=== PATIENT | male | born 1975 | race African-American/Black ===

== ENCOUNTER 2020-07-25 11:29 | Inpatient (IN) ==
[2020-07-25 13:15] LABS: Basophils % 0.4 % (0.0-0.8); Eosinophils # 0.3 10*3/uL (0.0-0.87); Eosinophils % 2.6 % (0.00-10.9); Hematocrit 23.7 VOL% (42.0-52.0); Hemoglobin 7.9 GM/DL (14.0-18.0); Immature Granulocytes % 0.5 %; Immature Granulocytes Absolute 0.05 #; Lymphocytes # 1.9 10*3/uL (1.4-4.0); Lymphocytes % 17.4 % (21.2-54.2); Mean Corpuscular HGB Conc 33.3 GM/DL (32-36); Mean Corpuscular Volume 70.5 FL (87-102); Mean Platelet Volume 8.7 FL (9.6-12.0); Monocytes % 7.1 % (1.7-12.7); Platelet Count 590 T/CUMM (130-400); Red Blood Count 3.36 MC/CUMM (3.8-5.5); White Blood Count 10.7 T/CUMM (4-12)
[2020-07-25 13:27] LABS: INR 1.1; PT Patient Result 11.9 SECS (9.8-11.9)
[2020-07-25] MEDS ORDERED: DEXTROSE 50% 25 GM/50 ML VIAL IV PRN (13:27)
[2020-07-25] MEDS ORDERED: ONDANSETRON 4 MG/2 ML VIAL IV PRN (13:27)
[2020-07-25] MEDS ORDERED: ACETAMINOPHEN 325 MG TABLET PO PRN (13:27)
[2020-07-25] MEDS ORDERED: GLUCAGON 1 MG VIAL IM PRN (13:27)
[2020-07-25] MEDS ORDERED: SODIUM CHLORIDE 0.9% 1,000 ML IV PRN (13:58)
[2020-07-25 14:03] LABS: Folate 20.1 NG/ML (5.4-24.0)
[2020-07-25 14:49] LABS: Alanine Aminotransferase 16 U/L (16-61); Albumin 2.1 G/DL (3.4-5.0); Alkaline Phosphatase 104 U/L (45-117); Aspartate Amino Transferase 13 U/L (0-37); Bilirubin,Total < 0.39 MG/DL (0.2-1.0); Blood Urea Nitrogen 11 MG/DL (7-18); Calcium 9.7 MG/DL (8.5-10.1); Estimated Glom Filtration Rate 142 ML/MIN; Glucose 93 MG/DL (74-106); Osmolality,Calculated 268.1 MOS/KG (273-304); Total Protein 7.4 G/DL (6.4-8.3)
[2020-07-25] MEDS: SODIUM CHLORIDE 0.9% 1,000 ML IV SCH (17:40)
[2020-07-25 18:40] LABS: Hematocrit 30.7 VOL% (42.0-52.0); Hemoglobin 10.1 GM/DL (14.0-18.0)
[2020-07-25] MEDS: PANTOPRAZOLE 40 MG TABLET PO SCH (20:51)
[2020-07-26] MEDS: SODIUM CHLORIDE 0.9% 1,000 ML IV SCH ×4 (04:16→18:31)
[2020-07-26 05:42] LABS: Basophils % 0.4 % (0.0-0.8); Eosinophils # 0.2 10*3/uL (0.0-0.87); Eosinophils % 2.5 % (0.00-10.9); Hematocrit 28.1 VOL% (42.0-52.0); Hemoglobin 9.5 GM/DL (14.0-18.0); Immature Granulocytes % 1.3 %; Immature Granulocytes Absolute 0.13 #; Lymphocytes # 2.1 10*3/uL (1.4-4.0); Lymphocytes % 21.3 % (21.2-54.2); Mean Corpuscular HGB Conc 33.8 GM/DL (32-36); Mean Corpuscular Volume 72.1 FL (87-102); Monocytes % 6.6 % (1.7-12.7); Neutrophils % 67.9 % (38.7-73.9); Platelet Count 536 T/CUMM (130-400); Red Cell Distribution Width 20.2 % (9.3-17.3); White Blood Count 9.8 T/CUMM (4-12)
[2020-07-26 06:14] LABS: Albumin 2.1 G/DL (3.4-5.0); Bilirubin,Total 0.7 MG/DL (0.2-1.0); Calcium 9.6 MG/DL (8.5-10.1); Osmolality,Calculated 275.4 MOS/KG (273-304); Risk Ratio 3.16; Thyroid Stimulating Hormone 1.35 uIU/ml (0.358-3.74); Total Protein 7.2 G/DL (6.4-8.3); VLDL CHOLESTEROL 15.4 MG/DL
[2020-07-26] MEDS ORDERED: IRON SUCROSE 200 MG in SODIUM CHLORIDE 0.9% 100 ML IV ONE (09:00)
[2020-07-26] MEDS ORDERED: FERROUS SULFATE 325 MG TABLET PO SCH (09:00)
[2020-07-26] MEDS: MULTIVITAMIN (CENTRUM) TABLET PO SCH (09:55)
[2020-07-26] MEDS: PANTOPRAZOLE 40 MG TABLET PO SCH ×2 (09:55→21:40)
[2020-07-26] MEDS: DOCUSATE SODIUM 100 MG/10 ML UDCUP PO SCH ×2 (09:56→10:01)
[2020-07-26] MEDS: BACLOFEN 10 MG TABLET PO SCH ×4 (09:56→21:39)
[2020-07-26] MEDS: DULoxetine 30 MG CAPSULE PO SCH (09:56)
[2020-07-26] MEDS: HYDROXYUREA 500 MG CAPSULE PO SCH ×2 (09:57→21:39)
[2020-07-26] MEDS: SENNA 8.6 MG TABLET PO SCH (12:04)
[2020-07-26] MEDS: oxyCODONE IR 5 MG TABLET PO PRN ×2 (13:40→18:20)
[2020-07-26] MEDS: GABAPENTIN 400 MG CAPSULE PO SCH (21:39)
[2020-07-26] MEDS: BISACODYL 5 MG TABLET PO SCH (21:41)
[2020-07-27] MEDS: oxyCODONE IR 5 MG TABLET PO PRN ×5 (00:17→22:03)
[2020-07-27] MEDS: DOCUSATE SODIUM 100 MG/10 ML UDCUP PO SCH ×2 (00:17→08:51)
[2020-07-27 06:40] LABS: Alanine Aminotransferase 12 U/L (16-61); Albumin 1.9 G/DL (3.4-5.0); Alkaline Phosphatase 90 U/L (45-117); Aspartate Amino Transferase 8 U/L (0-37); Bilirubin,Total < 0.39 MG/DL (0.2-1.0); Blood Urea Nitrogen 4 MG/DL (7-18); Calcium 9.6 MG/DL (8.5-10.1); Estimated Glom Filtration Rate 168 ML/MIN; Glucose 88 MG/DL (74-106); Osmolality,Calculated 276.3 MOS/KG (273-304); Total Protein 6.6 G/DL (6.4-8.3)
[2020-07-27 06:42] LABS: Basophils # 0.1 10*3/uL (0.0-0.2); Basophils % 0.9 % (0.0-0.8); Eosinophils # 0.3 10*3/uL (0.0-0.87); Eosinophils % 4.9 % (0.00-10.9); Hematocrit 26.3 VOL% (42.0-52.0); Immature Granulocytes % 0.3 %; Immature Granulocytes Absolute 0.02 #; Lymphocytes # 1.8 10*3/uL (1.4-4.0); Mean Corpuscular HGB Conc 34.2 GM/DL (32-36); Mean Corpuscular Volume 72.5 FL (87-102); Mean Platelet Volume 8.9 FL (9.6-12.0); Monocytes % 9.1 % (1.7-12.7); Neutrophils % 57.8 % (38.7-73.9); Platelet Count 703 T/CUMM (130-400); Red Blood Count 3.63 MC/CUMM (3.8-5.5); Red Cell Distribution Width 19.9 % (9.3-17.3); White Blood Count 6.5 T/CUMM (4-12)
[2020-07-27] MEDS: SODIUM CHLORIDE 0.9% 1,000 ML IV SCH ×2 (07:15→17:18)
[2020-07-27] MEDS: DULoxetine 30 MG CAPSULE PO SCH (08:51)
[2020-07-27] MEDS: PANTOPRAZOLE 40 MG TABLET PO SCH ×2 (08:52→22:03)
[2020-07-27] MEDS: MULTIVITAMIN (CENTRUM) TABLET PO SCH (08:52)
[2020-07-27] MEDS: BACLOFEN 10 MG TABLET PO SCH ×3 (08:52→22:04)
[2020-07-27] MEDS: HYDROXYUREA 500 MG CAPSULE PO SCH ×2 (11:05→22:03)
[2020-07-27] MEDS: SENNA 8.6 MG TABLET PO SCH (12:52)
[2020-07-27] MEDS: IRON SUCROSE 100 MG/5 ML VIAL IV SCH (12:54)
[2020-07-27] MEDS: GABAPENTIN 400 MG CAPSULE PO SCH (22:02)
[2020-07-27] MEDS: BISACODYL 5 MG TABLET PO SCH (22:03)
[2020-07-28] MEDS: oxyCODONE IR 5 MG TABLET PO PRN ×2 (02:34→20:27)
[2020-07-28] MEDS: DOCUSATE SODIUM 100 MG/10 ML UDCUP PO SCH ×4 (02:34→20:27)
[2020-07-28 05:41] LABS: Basophils # 0.1 10*3/uL (0.0-0.2); Basophils % 0.7 % (0.0-0.8); Eosinophils # 0.4 10*3/uL (0.0-0.87); Eosinophils % 5.7 % (0.00-10.9); Hematocrit 24.1 VOL% (42.0-52.0); Hemoglobin 8.2 GM/DL (14.0-18.0); Immature Granulocytes % 0.4 %; Immature Granulocytes Absolute 0.03 #; Lymphocytes # 1.8 10*3/uL (1.4-4.0); Lymphocytes % 23.2 % (21.2-54.2); Mean Corpuscular Volume 71.9 FL (87-102); Mean Platelet Volume 9.8 FL (9.6-12.0); Monocytes % 8.2 % (1.7-12.7); Neutrophils % 61.8 % (38.7-73.9); Platelet Count 433 T/CUMM (130-400); Red Blood Count 3.35 MC/CUMM (3.8-5.5); Red Cell Distribution Width 20.2 % (9.3-17.3); White Blood Count 7.5 T/CUMM (4-12)
[2020-07-28 05:50] LABS: Albumin 1.7 G/DL (3.4-5.0); Bilirubin,Total 1.3 MG/DL (0.2-1.0); Calcium 9.1 MG/DL (8.5-10.1); Osmolality,Calculated 276.3 MOS/KG (273-304)
[2020-07-28] MEDS ORDERED: SODIUM CHLORIDE 0.9% 1,000 ML IV PRN (08:26)
[2020-07-28] MEDS ORDERED: MAGNESIUM SULF RIDER 2 GM in PREMIX 1 EACH IV ONE (08:26)
[2020-07-28] MEDS: IRON SUCROSE 100 MG/5 ML VIAL IV SCH (09:49)
[2020-07-28] MEDS: MULTIVITAMIN (CENTRUM) TABLET PO SCH (11:26)
[2020-07-28] MEDS: BACLOFEN 10 MG TABLET PO SCH ×3 (11:27→20:26)
[2020-07-28] MEDS: PANTOPRAZOLE 40 MG TABLET PO SCH ×2 (11:27→20:27)
[2020-07-28] MEDS: HYDROXYUREA 500 MG CAPSULE PO SCH ×2 (11:27→20:25)
[2020-07-28] MEDS: DULoxetine 30 MG CAPSULE PO SCH (11:27)
[2020-07-28] MEDS: SENNA 8.6 MG TABLET PO SCH (14:49)
[2020-07-28] MEDS: SODIUM CHLORIDE 0.9% 1,000 ML IV SCH ×3 (16:25→20:30)
[2020-07-28] MEDS: GABAPENTIN 400 MG CAPSULE PO SCH (20:25)
[2020-07-28] MEDS: BISACODYL 5 MG TABLET PO SCH (20:26)
[2020-07-28 20:27] LABS: Hematocrit 33.8 VOL% (42.0-52.0); Hemoglobin 11.7 GM/DL (14.0-18.0)
[2020-07-29] MEDS: oxyCODONE IR 5 MG TABLET PO PRN ×3 (00:59→08:36)
[2020-07-29] MEDS: SODIUM CHLORIDE 0.9% 1,000 ML IV SCH (05:26)
[2020-07-29 06:08] LABS: Basophils # 0.1 10*3/uL (0.0-0.2); Basophils % 0.5 % (0.0-0.8); Eosinophils # 0.3 10*3/uL (0.0-0.87); Lymphocytes # 2.1 10*3/uL (1.4-4.0); Mean Platelet Volume 8.8 FL (9.6-12.0); Red Blood Count 4.16 MC/CUMM (3.8-5.5); Red Cell Distribution Width 20.4 % (9.3-17.3)
[2020-07-29 06:36] LABS: Calcium 9.2 MG/DL (8.5-10.1); Osmolality,Calculated 276.3 MOS/KG (273-304)
[2020-07-29 07:59] LABS: Eosinophils % 3.1 % (0.00-10.9); Hematocrit 30.5 VOL% (42.0-52.0); Hemoglobin 10.7 GM/DL (14.0-18.0); Immature Granulocytes % 0.3 %; Immature Granulocytes Absolute 0.03 #; Lymphocytes % 22.6 % (21.2-54.2); Mean Corpuscular HGB Conc 35.1 GM/DL (32-36); Mean Corpuscular Volume 73.3 FL (87-102); Monocytes % 6.6 % (1.7-12.7); Neutrophils % 66.9 % (38.7-73.9); Platelet Count 681 T/CUMM (130-400); White Blood Count 9.4 T/CUMM (4-12)
[2020-07-29] MEDS ORDERED: propofoL 200 MG/20 ML VIAL IV ONE (10:00)
[2020-07-29] MEDS ORDERED: ETOMIDATE 20 MG/10 ML VIAL IV ONE (10:00)
[2020-07-29] MEDS ORDERED: LIDOCAINE 2% 5 ML VIAL ONE (10:00)
[2020-07-29] MEDS ORDERED: POTASSIUM CHLORIDE 20 MEQ TABLET PO ONE (11:30)
[2020-07-29] MEDS ORDERED: IRON SUCROSE 100 MG/5 ML VIAL IV SCH (11:59)
[2020-07-29 12:25] VITALS: BP 120/107
[2020-07-29] MEDS ORDERED: IRON SUCROSE 300 MG in SODIUM CHLORIDE 0.9% 100 ML IV ONE (12:30)
== END 2020-07-29 15:48 | DRG 813 ==
LOC: N.ED 11:29 → N.EDINP 13:24 → SUATTDRO 13:24 → N.3E 16:15
PROVIDERS: ADMIT Internal Medicine; ATTEND Internal Medicine